=== PATIENT | male | born 1985 | race Two or more races ===

== ENCOUNTER → 2025-02-05 09:56 | Outpatient (REF) | payer OTHER, SELFPAY | LOC: RAD 09:56 | PROVIDERS: ATTENDING PHYSICIAN Internal Medicine Cardiovascular Disease; FAMILY PHYSICIAN Physician Assistant | DX: R00.1 Bradycardia, unspecified (principal); Z82.3 Family history of stroke; R94.39 Abnormal result of other cardiovascular function study; R06.09 Other forms of dyspnea; E78.9 Disorder of lipoprotein metabolism, unspecified; Z82.49 Family history of ischemic heart disease and other diseases of the circulatory system | CPT/HCPCS: 75574; Q9967 ==